=== PATIENT | male | born 1975 | race Caucasian/White ===

== ENCOUNTER 2016-12-12 12:37 | Emergency (ER) | payer SELFPAY ==
[2016-12-12 12:37] VITALS: BP 152/93
[2016-12-12] MEDS ORDERED: HYDROmorphone HCL 1 MG/ML DISP.SYRIN IM ONE (13:11)
--- OUTSIDE RECORDS SUMMARY | 2016-12-12 13:17 | XMS REPORT | Continuity of Care Document ---
:1975 Author Organization [employer] [place] [address] Care Team Providers Name Role Phone Unavailable Primary Care Provider Unavailable Source Comments This disclosure is being made pursuant to the [employer] program and maynot contain all information available regarding this patient.[employer] Active Allergies and Adverse Reactions Not on File Current Medications Be aware that medications may not be up to date as of this document. Alwaysverify current medications with the patient. Not on file Active Problems Not on file Social History Tobacco Use Types Packs/Day Years Used Date Never Assessed Plan of Care Health Maintenance Due Date Last Done Comments Retired-Pertussis Vaccine Adult 02/13/1996 Retired-Tetanus Vaccine Adult 02/13/1996 Retired-INFLUENZA VACCINE 04/16/2015 Results from Last 3 Months Not on file
--- NOTE | 2016-12-12 13:21 | ERNOTE ---
Upper Extremity HPI - Narrative Date of Service: 12/12/16 - General Extremities Pain Location: wrist: right Time Seen by Provider: 12/12/16 13:04 Source: patient Exam Limitations: no limitations - Immun/Allergies/Home Medications Immunizations: IMMUNIZATION HX Immunizations Up to Date Yes History of Influenza Vaccine No Hx Pneumococcal Vaccination No Allergies/Adverse Reactions: Allergies Allergy/AdvReac Type Severity Reaction Status Date / Time No Known Allergies Allergy Verified 03/19/16 15:51 Home Medications: HOME MEDICATIONS buPROPion HCL [Wellbutrin] 100 mg PO TID #90 tablet 12/01/14 [Last Taken Unknown ] oxyCODONE HCL/ACETAMINOPHEN [Percocet 5 MG/325 MG] 1 tab PO Q4H PRN #20 tab [Last Taken Unknown] - History of Present Illness Narrative: Pt. comes in with c/o R lateral wrist pain from distal ulna to his fingers after he fell while going up his stairs and caught himself with this hand. Pt. also states that he landed on his R lateral chest as well during the fall. Pt. denies and SOB, CP, NVD, fever, but does state that he has been under treatment for Bipolar and bronchitis and is on new medications for both. Pt. denies any alleviating factors or prehospital treatment and states that movement and palpation exacerbate the pain. Review of Systems - Review of Systems Constitutional: Present: recent illness. Absent: fever, chills, weakness, fatigue, malaise EYE: Present: no symptoms reported ENT: Present: no symptoms reported Respiratory: Present: cough. Absent: shortness of breath, wheezing Cardiology: Present: chest pain - R lateral rib. Absent: palpitations, edema Gastrointestinal/Abdominal: Present: no symptoms reported. Absent: nausea, vomiting, diarrhea Genitourinary: Present: no symptoms reported. Absent: frequency, pain, decreased urinary output Musculoskeletal: Present: no symptoms reported. Absent: back pain, joint pain Skin: Present: no symptoms reported. Absent: rash, change in color Neurological: Present: no symptoms reported. Absent: headache, dizziness/light- headedness, numbness, tingling All Other Systems: All systems neg except as marked - Patient's Past Medical History Patient History - Medical: No pertinent hx Patient History - Cardiac/Respiratory: Asthma, Bronchitis, Hypertension Patient History - Cancer: No Hx of Cancer Patient History - Surgical Procedures: Other Patient History - Other: None - Social History Living Situations: spouse Psych History: Hx of Anxiety, Hx of Depression Smoking Status: Former smoker Alcohol Use: rarely Drug Use: none - Immunizations Immunizations Up to Date: Yes Hx Pneumococcal Vaccination: No History of Influenza Vaccine: No Physical Exam - Physical Exam General Appearance: Present: wd/wn, alert, no apparent distress Eye Exam: Normal inspection: bilateral, PERRL: bilateral, EOMI: bilateral Ears, Nose, Throat: Present: normal ENT inspection, normal pharynx Neck: Present: normal inspection, nontender. Absent: lymphadenopathy (R), lymphadenopathy (L) Respiratory: Present: no respiratory distress, normal breath sounds, no accessory muscle use, chest nontender, lungs clear Cardiovascular/Chest: Present: regular rate, rhythm, no murmur, normal peripheral pulses Gastrointestinal/Abdominal: Present: normal bowel sounds, nontender, nondistended, soft, no organomegaly Back Exam: Present: normal inspection, normal range of motion, no CVA tenderness , no vertebral tenderness Extremity Exam: Present: decreased range of motion - R wrist, bony tenderness - distal ulna and radius, joint swelling Neurological Exam: Present: alert, oriented, normal mood/affect, no motor/ sensory deficits Skin Exam: Present: normal color, warm/dry. Absent: pallor, skin rash ED Progress - Date and Time Seen: Date and Time: 12/12/16 14:20 Discussed with srini bates and we will apply spint and slling on pt. and follow up with ortho on wednesday - Vital Signs Patient's Vital Signs:: I have reviewed the patient's vital signs. Vital Signs: Vital Signs 12/12/16 12:49 Temperature 36.7 C Respiratory 18 Rate - X-Ray X-Ray #1 X-Ray: wrist Interpretation: Interp. by me X-ray Comments: impacted radial head fracture. - Progress/Reassessment Chief Complaint: Wrist Injury/Pain Departure Clinical Impression: Radius fracture Qualifiers: Encounter type: initial encounter Radius location: head Fracture type: closed Fracture alignment: nondisplaced Laterality: right Qualified Code(s): S52.124A - Nondisplaced fracture of head of right radius, initial encounter for closed fracture Rib contusion Qualifiers: Encounter type: initial encounter Laterality: right Qualified Code(s): S20.211A - Contusion of right front wall of thorax, initial encounter - Departure Disposition: Home self-care Condition: Good Instructions: Wrist Fracture Treated With Immobilization, [id number] Additional Instructions: Please follow up with Orthopedics by calling their office on Wednesday for appointment. Referrals: Cb See MD [Primary Care Provider] - Prescriptions: oxyCODONE HCL/ACETAMINOPHEN [Percocet 5 MG/325 MG] 1 tab PO Q4H PRN #20 tab PRN Reason: Pain
[2016-12-12] MEDS ORDERED: HYDROmorphone HCL 1 MG/ML DISP.SYRIN ONE (13:31)
== END 2016-12-12 14:59 | disposition home or self-care (01) ==
LOC: ER 12:37
PROC: 2W3CX1Z Immobilization of Right Lower Arm using Splint (ICD-10-PCS; principal; 2016-12-12)
DX: S52.124A Nondisplaced fracture of head of right radius, initial encounter for closed fracture (principal); S20.211A Contusion of right front wall of thorax, initial encounter; Z87.891 Personal history of nicotine dependence; W10.9XXA Fall (on) (from) unspecified stairs and steps, initial encounter; F32.9 Major depressive disorder, single episode, unspecified

== ENCOUNTER 2016-12-13 21:16 | Emergency (ER) | payer SELFPAY ==
--- NOTE | 2016-12-13 22:47 | ERNOTE ---
Upper Extremity HPI - Narrative Date of Service: 12/13/16 - General Time Seen by Provider: 12/13/16 22:46 Source: patient, family - Immun/Allergies/Home Medications Immunizations: IMMUNIZATION HX Immunizations Up to Date Yes History of Influenza Vaccine No Hx Pneumococcal Vaccination No Allergies/Adverse Reactions: Allergies Allergy/AdvReac Type Severity Reaction Status Date / Time No Known Allergies Allergy Verified 03/19/16 15:51 Home Medications: HOME MEDICATIONS buPROPion HCL [Wellbutrin] 100 mg PO TID #90 tablet 12/01/14 [Last Taken Unknown ] oxyCODONE HCL/ACETAMINOPHEN [Percocet 5 MG/325 MG] 1 tab PO Q4H PRN #20 tab [Last Taken Unknown] Escitalopram Oxalate [Lexapro] 5 mg PO 12/13/16 [Last Taken Unknown] - History of Present Illness Narrative: C/O OF PAIN FROM FRACTURE WRIST THAT PERCOCET AND ALCOHOL DO NOT HELP. HE WAS SEEN HERE YESTERDAY AFTER A FALL AND HAS COMMINUTED, MINIMALLY DISPLACED FX OF THE DISTAL RIGHT RADIUS. IT WAS SPLINTED AND ARRANGEMENT MADE TO SEE ORTHO TOMORROW. IT DOES NOT SOUND LIKE HE HAS BEEN GOOD ABOUT ELEVATING ABOVE THE HEART OR USING ICE Q 4HR. Review of Systems - Review of Systems Constitutional: Present: See HPI Musculoskeletal: Present: other - RIGHT RADIUS FX All Other Systems: All systems neg except as marked - Patient's Past Medical History Patient History - Medical: No pertinent hx Patient History - Cardiac/Respiratory: Asthma, Bronchitis, Hypertension Patient History - Cancer: No Hx of Cancer Patient History - Surgical Procedures: Other Patient History - Other: None - Social History Living Situations: home Abuse History: No History of abuse Psych History: Hx of Anxiety, Hx of Depression Smoking Status: Current every day smoker Have you smoked in the past 12 months: Yes Alcohol Use: rarely Drug Use: none - Immunizations Immunizations Up to Date: Yes Hx Pneumococcal Vaccination: No History of Influenza Vaccine: No Physical Exam - Physical Exam General Appearance: Present: wd/wn, alert, moderate distress Extremity Exam: Present: other - HE HAS SPLINT TO RIGHT WRIST . I REMOVED REYNA WRAP, MADE SURE THE SOFT ROLL WAS NOT TOO TIGHT AND REMOVED ONE SLAB KEEPING JUST THE VOLAR SLAB AND REAPPLIED THE REYNA WRAP MAKING SURE TO HAVE IT VERY TIGHT. HE HAS GOOD DISTAL REFILL AND SENSATION IN FINGERS BUT HAS NOT BEEN MOVING FINGERS EVEN A LITTLE SAYING IT HURTS TOO MUCH THOUGH CAN WIGGLE ALL 5 FINGERS. . Neurological Exam: Present: alert, oriented, other - THOUGH SMELLS OF ETOH. ED Progress - Vital Signs Vital Signs: Vital Signs 12/13/16 21:37 Temperature 37.0 C Pulse Rate 91 Respiratory 18 Rate Blood Pressure 136/82 O2 Sat by Pulse 95 Oximetry - X-Ray X-Ray #1 X-Ray: wrist X-ray Comments: Reason for Exam: R wrist pain after fall Radiological Report : Exam Date: 12/12/2016 13:47 Ordering Physician: Paola Francois History: Right wrist pain status post fall. Right lateral rib pain status post fall. Pain post injury. Technique: 4 views of the right wrist obtained. Comparison: None. Findings: Exam shows comminuted fractures of the distal radius. There is impaction and slight dorsal displacement. There is no clear intra- articular extension. Alignment within the carpus appears within normal limits. No other fractures identified. IMPRESSION: COMMINUTED, MILDLY IMPACTED, MILDLY DISPLACED DISTAL RIGHT RADIUS FRACTURES. Electronically signed by Maciel Kapadia M.D.. - Progress/Reassessment Chief Complaint: Upper Extremity Injury/Problem Departure Clinical Impression: Radius fracture Qualifiers: Encounter type: subsequent encounter Radius location: distal Fracture type: closed Fracture morphology: unspecified fracture morphology Laterality: right Fracture healing: with routine healing Qualified Code(s): S52.501D - Unspecified fracture of the lower end of right radius, subsequent encounter for closed fracture with routine healing - Departure Disposition: Home Follow Up Needed Condition: Fair Instructions: Cast or Splint Care, [id number], Wrist Fracture Treated With Immobilization, [id number] Additional Instructions: DO NOT MIX YOUR PERCOCET WITH ALCOHOL AND TAKE ONLY DIRECTED YOU CAN SUPPLEMENT WITH , OR USE INSTEAD, IBUPROFEN 600 MGEVERY 8 HOURS. KEEP THE WRIST ELEVATED ABOVE THE LEVEL OF YOUR HEART. APPLY ICE TO THE SORE AREA FOR 30 MINS EVERY 3-4 HOURS. MOVE THE FINGERS GENTLY TO HELP WITH CIRCULATION. FOLLOW UP WITH THE ORTHOPEDIST TOMORROW SCHEDULED. Referrals: Cb See MD [Primary Care Provider] -
[2016-12-13] MEDS ORDERED: KETOROLAC TROMETHAMINE 60 MG/2 ML VIAL IM ONE ×2 (22:57)
[2016-12-13 23:19] VITALS: BP 111/68
--- OUTSIDE RECORDS SUMMARY | 2016-12-13 23:21 | XMS REPORT | Continuity of Care Document ---
:1975 Author Organization [employer] [place] [address] Care Team Providers Name Role Phone Unavailable Primary Care Provider Unavailable Source Comments This disclosure is being made pursuant to the [employer] program and maynot contain all information available regarding this patient.[employer] Active Allergies and Adverse Reactions Not on [...]
== END 2016-12-13 23:30 | disposition home or self-care (01) ==
LOC: ER 21:16
DX: S52.501D Unspecified fracture of the lower end of right radius, subsequent encounter for closed fracture with routine healing (principal); Z72.0 Tobacco use

== ENCOUNTER 2017-06-04 23:43 | Emergency (ER) | payer BC ==
[2017-06-05] MEDS ORDERED: KETOROLAC TROMETHAMINE 60 MG/2 ML VIAL IM ONE ×2 (00:01→00:07)
[2017-06-05 00:02] VITALS: BP 120/80
--- NOTE | 2017-06-05 00:08 | ERNOTE ---
Upper Extremity HPI - Narrative Date of Service: 06/05/17 - General Extremities Pain Location: shoulder: right Time Seen by Provider: 06/05/17 00:01 Source: patient - Immun/Allergies/Home Medications Immunizations: IMMUNIZATION HX Immunizations Up to Date Yes History of Influenza Vaccine No Hx Pneumococcal Vaccination No Allergies/Adverse Reactions: Allergies Allergy/AdvReac Type Severity Reaction Status Date / Time No Known Allergies Allergy Verified 03/19/16 15:51 Home Medications: HOME MEDICATIONS buPROPion HCL [Wellbutrin] 100 mg PO TID #90 tablet 12/01/14 [Last Taken Unknown ] oxyCODONE HCL/ACETAMINOPHEN [Percocet 5 MG/325 MG] 1 tab PO Q4H PRN #20 tab [Last Taken Unknown] Escitalopram Oxalate [Lexapro] 5 mg PO 12/13/16 [Last Taken Unknown] - History of Present Illness Narrative: This is a 42-year-old male who comes to the emergency department complaining of right shoulder pain since last night. 24 hours ago. The patient says that he is scheduled for surgery later this week for his arm. He started having a uncomfortable aching pain in his right shoulder worse when he moves it. He says it hurts a lot more when he takes a breath in. He denies any fever or chills he has had a bit of coughing but he relates that quitting smoking recently. He has no leg swelling no recent car or plane trips or prolonged. He denies any chest pain. Does not have any sputum production. The patient is adamant about not having any testing procedures done. He explains that he has surgery coming up and he has been out of work for 6 months or so. He says he can't afford to have anything done and will not allow to have anything done and I could just give him a shot of steroid and a shoulder and "make the shoulder go to sleep" Review of Systems - Review of Systems Constitutional: Present: See HPI EYE: Present: no symptoms reported ENT: Present: no symptoms reported Respiratory: Present: See HPI, cough Cardiology: Present: no symptoms reported Gastrointestinal/Abdominal: Present: no symptoms reported Genitourinary: Present: no symptoms reported Musculoskeletal: Present: no symptoms reported Skin: Present: no symptoms reported Neurological: Present: no symptoms reported Endocrine: Present: no symptoms reported Hematologic/Lymphatic: Present: no symptoms reported Psych: Present: no symptoms reported All Other Systems: All systems neg except as marked - Patient's Past Medical History Patient History - Medical: No pertinent hx Patient History - Cardiac/Respiratory: Asthma, Bronchitis, Hypertension Patient History - Cancer: No Hx of Cancer Patient History - Surgical Procedures: Other, Orthopedic Patient History - Other: None - Social History Living Situations: home Abuse History: No History of abuse Psych History: Hx of Anxiety, Hx of Depression Smoking Status: Current every day smoker Alcohol Use: rarely Drug Use: none - Immunizations Immunizations Up to Date: Yes Hx Pneumococcal Vaccination: No History of Influenza Vaccine: No Physical Exam - Physical Exam General Appearance: Present: wd/wn, alert, no apparent distress Head Exam: Present: normal inspection, no evidence of injury Ears, Nose, Throat: Present: normal ENT inspection, normal pharynx Neck: Present: normal inspection, nontender Respiratory: Present: no respiratory distress, normal breath sounds, no accessory muscle use, other - occasional scattered wheeze Cardiovascular/Chest: Present: regular rate, rhythm, no murmur, other - tachycardic around 110 Gastrointestinal/Abdominal: Present: normal bowel sounds, nontender, nondistended, soft, no organomegaly Back Exam: Present: normal inspection, normal range of motion, no CVA tenderness , no vertebral tenderness Extremity Exam: Present: other - patient has an area of tenderness at the top of the trapezius, near the insertion of Levaquin or scapula. Palpation here reproduces his complaint. When he breathes using his appendicular musculature, I noticed the muscles in this area moved quite a bit. He says that's what hurts. Distal neurovascular is intact. Splint applied to the right wrist. Difficulty with supination Neurological Exam: Present: alert, oriented, normal mood/affect, no motor/ sensory deficits Skin Exam: Present: normal color, warm/dry Lymphatic Exam: Present: no adenopathy ED Progress - Vital Signs Patient's Vital Signs:: I have reviewed the patient's vital signs. Vital Signs: Vital Signs 06/04/17 23:50 Temperature 37.5 C Pulse Rate 116 H Respiratory 20 Rate Blood Pressure 120/80 - Progress/Reassessment Progress:: Unchanged Progress Note-Subjective: 06/05/17 00:05 I've explained to the patient that I have concern about pulmonary embolism. He has pleuritic chest pain/shoulder pain and is tachycardic. He relates to tachycardia to Adderall. He has been taking it for 4 months but not over the last 2 weeks until last night when he took some. The patient is adamant he does not want to have a CT scan of his chest performed. He is adamant he does not want have an IV placed with blood tests. I have discussed the risks benefits and alternatives of having these tests done and he accepts responsibility. He declines to have any of these tests done. I have offered him a shot of Toradol. We have discussed the use of his tramadol that he hasn't home. I've advised him no more than 6 tablets in 24 hours. He says that he took 2 tablets last night by approximately 2 hours and this seemed to be enough for him to go to sleep. The patient is aware if he develops new concerning symptoms he should return to the ER. Departure Clinical Impression: Shoulder pain - Departure Disposition: Home self-care Condition: Fair Additional Instructions: As we discussed, I do believe that her pain is coming from shoulder muscles, but I cannot completely exclude the possibility of something more serious. Of particular concern is a blood clot. You do not want to have the tests done for this, which is certainly right. Certainly if he develops severe shortness of breath, coughing up blood, or any new concerning symptoms she should return to the ER. I would recommend that you place her arm in its bleeding. This will help you avoid using those muscles to carry around the splint that you have on. Take ibuprofen, 3 of the 200 mg tablets of Motrin or Advil, every 6 hours. Try to sleep on your back. Laying on the shoulder will cause more trouble. Keep continuing to try and quit smoking. Follow-up with your family doctor Return to the ER for any new concerning symptoms Referrals: Cb See MD [Primary Care Provider] -
== END 2017-06-05 00:15 | disposition home or self-care (01) ==
LOC: ER 23:43
DX: M25.511 Pain in right shoulder (principal); Z53.29 Procedure and treatment not carried out because of patient's decision for other reasons; I10 Essential (primary) hypertension; F17.200 Nicotine dependence, unspecified, uncomplicated